=== PATIENT | female | born 1950 | race Caucasian/White ===

== ENCOUNTER 2017-07-07 10:38 | Day surgery (SDC) | payer MEDICAID ==
[~2017-07-07] VITALS: Ht 162.6 cm; Wt 59.9 kg
[~2017-07-07 10:38] MED LIST: IBUP-1542 PO; [UNRECOGNIZED DRUG - CODE] MC
[2017-07-07 11:35] VITALS: Ht 162.6 cm; Wt 59.9 kg
[2017-07-07] MEDS ORDERED: [UNRECOGNIZED DRUG - OTHER] (11:55)
[2017-07-07] MEDS ORDERED: ATOR20TA38 PO (11:55)
[2017-07-07 12:28] VITALS: BP 128/78; PULSE 70; RESP 22
--- NOTE | 2017-07-07 13:49 | OPPN ---
Date/Time of Note Date/Time of Note DATE: 07/07/17 TIME: 13:48 Operative Report Preoperative Diagnosis Change in bowel habit Lower abdominal pain Family history of colon cancer Postoperative Diagnosis 2 small transverse colon polyps were removed Internal hemorrhoids Operation/Procedure Performed Colonoscopy and biopsy Surgeon see signature line assistant credit manager None Anesthesia: moderate sedation Estimated blood loss: none Transfusion Required none Specimen Colon polyps Grafts/Implants none Complications none NIKI COPE MD Jul 07, 2017 13:49
--- NOTE | 2017-07-07 13:49 | OPPN ---
Date/Time of Note Date/Time of Note DATE: 07/07/17 TIME: 13:48 Operative Report Preoperative Diagnosis Change in bowel habit Lower abdominal pain Family history of colon cancer Postoperative Diagnosis 2 small transverse colon polyps were removed Internal hemorrhoids Operation/Procedure Performed Colonoscopy and biopsy Surgeon see signature line foundation assistant None Anesthesia: moderate sedation Estimated blood loss: none Transfusion Required none Specimen Colon polyps Grafts/Implants none Complications none NIKI COPE MD Jul 07, 2017 13:49
--- NOTE | 2017-07-07 13:49 | OPPN ---
Date/Time of Note Date/Time of Note DATE: 07/07/17 TIME: 13:48 Operative Report Preoperative Diagnosis Change in bowel habit Lower abdominal pain Family history of colon cancer Postoperative Diagnosis 2 small transverse colon polyps were removed Internal hemorrhoids Operation/Procedure Performed Colonoscopy and biopsy Surgeon see signature line assistant corporate controller None Anesthesia: moderate sedation Estimated blood loss: none Transfusion Required none Specimen Colon polyps Grafts/Implants none Complications none NIKI COPE MD Jul 07, 2017 13:49
[2017-07-07] MEDS ORDERED: MIDAZOLAM 1 MG/ML 2 ML INJ ONE ×2 (13:52)
[2017-07-07] MEDS ORDERED: FENTAnyl 50 MCG/ML VIAL ONE (13:52)
[2017-07-07 14:12] VITALS: BP 127/80; RESP 14
--- NOTE | 2017-07-08 04:15 | GILP ---
DATE OF PROCEDURE: NAME OF PROCEDURE: Colonoscopy and biopsy. SURGEON: Niki Ott MD PREOPERATIVE DIAGNOSES: 1. Change in the bowel habit. 2. Lower abdominal pain. 3. Family history of colon cancer. POSTOPERATIVE DIAGNOSES: 1. Colonoscopy all the way to the cecum. 2. Two small transverse colon polyps were removed using the biopsy forceps. 3. Internal hemorrhoids. INDICATION FOR THE PROCEDURE: Ms. Naye So is a 66-year-old female patient who noticed a change i n the bowel habit. She also had left lower quadrant abdominal pain. She had family history of colo n cancer. The patient was scheduled for colonoscopy for further evaluation. The procedure and possible complications were well explained to the patient, the patient understood and consented to the procedure. DESCRIPTION OF PROCEDURE: Under the influence of fentanyl and Versed, the colonoscope was carefully introduced in the rectum and under direct vision, it was advanced all the way to the cecum. FINDINGS: The patient had 2 small transverse colon polyps and they were removed using biopsy forcep s. The patient was noted to have internal hemorrhoids. She tolerated the procedure very well and there was no complication from the procedure. At the end of the procedure, she was awake with stable vital signs and she was discharged home to the care of [facility]. IMPRESSION: Please see postoperative diagnosis. PLAN: 1. Await histopathology report. 2. Next screening colonoscopy in 5 years. Dictated By: NIKI MISHRA/TORREY Conf#: [id number] DID#: [id number]
--- NOTE | 2017-07-08 04:15 | GILP ---
DATE OF PROCEDURE: NAME OF PROCEDURE: Colonoscopy and biopsy. SURGEON: Niki Ott MD PREOPERATIVE DIAGNOSES: 1. Change in the bowel habit. 2. Lower abdominal pain. 3. Family history of colon cancer. POSTOPERATIVE DIAGNOSES: 1. Colonoscopy all the way to the cecum. 2. Two small transverse colon polyps were removed using the biopsy forceps. 3. Internal hemorrhoids. INDICATION FOR THE PROCEDURE: Ms. Naye So is a 66-year-old female patient who noticed a change i n the bowel habit. She also had left lower quadrant abdominal pain. She had family history of colo n cancer. The patient was scheduled for colonoscopy for further evaluation. The procedure and possible complications were well explained to the patient, the patient understood and consented to the procedure. DESCRIPTION OF PROCEDURE: Under the influence of fentanyl and Versed, the colonoscope was carefully introduced in the rectum and under direct vision, it was advanced all the way to the cecum. FINDINGS: The patient had 2 small transverse colon polyps and they were removed using biopsy forcep s. The patient was noted to have internal hemorrhoids. She tolerated the procedure very well and there was no complication from the procedure. At the end of the procedure, she was awake with stable vital signs and she was discharged home to the care of [facility] family. IMPRESSION: Please see postoperative diagnosis. PLAN: 1. Await histopathology report. 2. Next screening colonoscopy in 5 years. Dictated By: NIKI MISHRA/TORREY Conf#: [id number] DID#: [id number]
--- NOTE | 2017-07-08 04:15 | GILP ---
DATE OF PROCEDURE: NAME OF PROCEDURE: Colonoscopy and biopsy. SURGEON: Niki Ott MD PREOPERATIVE DIAGNOSES: 1. Change in the bowel habit. 2. Lower abdominal pain. 3. Family history of colon cancer. POSTOPERATIVE DIAGNOSES: 1. Colonoscopy all the way to the cecum. 2. Two small transverse colon polyps were removed using the biopsy forceps. 3. Internal hemorrhoids. INDICATION FOR THE PROCEDURE: Ms. Naye So is a 66-year-old female patient who noticed a change i n the bowel habit. She also had left lower quadrant abdominal pain. She had family history of colo n cancer. The patient was scheduled for colonoscopy for further evaluation. The procedure and possible complications were well explained to the patient, the patient understood and consented to the procedure. DESCRIPTION OF PROCEDURE: Under the influence of fentanyl and Versed, the colonoscope was carefully introduced in the rectum and under direct vision, it was advanced all the way to the cecum. FINDINGS: The patient had 2 small transverse colon polyps and they were removed using biopsy forcep s. The patient was noted to have internal hemorrhoids. She tolerated the procedure very well and there was no complication from the procedure. At the end of the procedure, she was awake with stable vital signs and she was discharged home to the care of [facility]. IMPRESSION: Please see postoperative diagnosis. PLAN: 1. Await histopathology report. 2. Next screening colonoscopy in 5 years. Dictated By: NIKI MISHRA/TORREY Conf#: [id number] DID#: [id number]
== END 2017-07-07 16:22 | disposition home or self-care (01) ==
LOC: GIL 10:38
PROVIDERS: ATTEND Internal Medicine Gastroenterology
DX: D12.3 Benign neoplasm of transverse colon (principal); K64.8 Other hemorrhoids; R19.4 Change in bowel habit; R10.30 Lower abdominal pain, unspecified; Z80.0 Family history of malignant neoplasm of digestive organs
CPT/HCPCS: 45380; 88305; J2250; J3010; Z7610